=== PATIENT | male | born 1990 | race Caucasian/White ===

== ENCOUNTER 2017-12-29 08:39 | Emergency (ER) | payer MEDICAID ==
[~2017-12-29] VITALS: Ht 172.7 cm; Wt 59.0 kg
[2017-12-29] MEDS ORDERED: CLIN300C53 PO (09:11)
[2017-12-29 09:19] VITALS: BP 125/84
== END 2017-12-29 09:19 | disposition home or self-care (01) ==
LOC: ER 08:40
DX: K04.7 Periapical abscess without sinus (principal); F12.10 Cannabis abuse, uncomplicated; F17.200 Nicotine dependence, unspecified, uncomplicated; Z79.899 Other long term (current) drug therapy
CPT/HCPCS: 99283

== ENCOUNTER 2023-10-12 16:31 | Emergency (ER) | payer MEDICAID ==
[~2023-10-12] VITALS: Ht 170.2 cm; Wt 73.6 kg
[2023-10-12 17:00] VITALS: BP 154/84; PULSE 108; RESP 18; TEMP 97.8; O2SAT 99
[2023-10-12 17:25] LABS: BILIRUBIN,URINE NEGATIVE (Neg); CLARITY,URINE CLOUDY (Clear); COLOR,URINE YELLOW (Yellow); GLUCOSE, URINE NEGATIVE (Neg); KETONES,URINE NEGATIVE (Neg); LEUKOCYTE ESTERASE ,URINE SMALL (Neg); NITRITES, URINE POSITIVE (Neg); OCCULT BLOOD,URINE NEGATIVE (Neg); PH,URINE 7.5 (4.8-8.0); PROTEIN,URINE TRACE mg/dl (Neg); UROBILINOGEN,URINE 0.2 E.U/dL (0.2-1.0)
[2023-10-12 17:27] LABS: UA COLLECTION TYPE CLN CATCH MIDSTREAM
[2023-10-12 17:45] LABS: TRIPLE PHOSPHATE CRYST 3+ /HPF (NEGATIVE)
[2023-10-12 17:46] LABS: BACTERIA,URINE 4+ /HPF (Neg); RBC,URINE 0-2 /HPF (0-2); SQUAMOUS EPITHELIAL CELL,UR NONE SEEN /LPF (FEW); WBC,URINE 50-100 /HPF (0-4)
[2023-10-12 17:47] LABS: AMORPHOUS PHOSPHATES 2+
[2023-10-12 18:04] LABS: BASOPHILS # (AUTO) 0.1 X10'3 (0-0.2); BASOPHILS % (AUTO) 1.4 % (0-1); EOSINOPHILS # (AUTO) 0.6 X10'3 (0-0.9); EOSINOPHILS % (AUTO) 5.2 % (0-6); HEMATOCRIT 47.2 % (42.0-52.0); HEMOGLOBIN 16.4 g/dl (14.0-17.9); LYMPHOCYTES % (AUTO) 28.1 % (21-51); MEAN CORPUSCULAR HEMOGLOBIN 31.6 PG (27.0-31.0); MEAN CORPUSCULAR HGB CONC 34.7 g/dL (33.0-36.5); MEAN CORPUSCULAR VOLUME 91.1 FL (78-98); MEAN PLATELET VOLUME 8.9 FL (7.4-10.4); MONOCYTES # (AUTO) 0.7 X10'3 (0-0.9); MONOCYTES % (AUTO) 6.9 % (2-12); NEUTROPHILS # (AUTO) 6.3 X10'3 (1.8-7.7); NEUTROPHILS % (AUTO) 58.4 % (42-75); PLATELET COUNT 348 X10'3 (140-440); RED BLOOD COUNT 5.18 X10'6 (4.70-6.10); RED CELL DISTRIBUTION WIDTH 13.2 % (11.5-14.5); WHITE BLOOD COUNT 10.7 X10'3 (4.5-11.0)
[2023-10-12 18:13] LABS: ALANINE AMINOTRANSFERASE 34 U/L (12-78); ALBUMIN 4.1 G/DL (3.4-5.0); ALBUMIN/GLOBULIN RATIO 1.2 (1.1-1.5); ALKALINE PHOSPHATASE 95 IU/L (46-116); ANION GAP 9 (8-16); ASPARTATE AMINO TRANSFERASE 29 U/L (10-37); BILIRUBIN,TOTAL 0.4 MG/DL (0.1-1.0); BLOOD UREA NITROGEN 15 MG/DL (7-18); BUN/CREATININE RATIO 13.9 (10.0-20.0); CALCIUM 9.4 MG/DL (8.5-10.1); CHLORIDE 102 MMOL/L (99-107); CREATININE 1.08 MG/DL (0.60-1.10); GLUCOSE 96 MG/DL (70-104); LIPASE 27 U/L (16-77); POTASSIUM 4.1 MMOL/L (3.5-5.1); SODIUM 140 MMOL/L (135-145); TOTAL CARBON DIOXIDE 28.8 MMOL/L (24-32); TOTAL PROTEIN 7.5 G/DL (6.4-8.2); eCRCL 90 ML/MIN; eGFR 78 ML/MIN
[2023-10-12] MEDS ORDERED: DOXYCYCLINE 100MG CAPSULE PO STA (19:51)
[2023-10-12] MEDS ORDERED: CefTRIAXone 1000mg IM Kit (w/lidocaine diluent) IM ONE (19:55)
[2023-10-12] MEDS ORDERED: DOXY100C77 PO (20:01)
[2023-10-12] MEDS ORDERED: CEPH250T PO (20:01)
== END 2023-10-12 20:24 | disposition home or self-care (01) ==
LOC: ER 16:32
DX: N41.0 Acute prostatitis (principal); F12.10 Cannabis abuse, uncomplicated; Z79.899 Other long term (current) drug therapy
CPT/HCPCS: 36415; 80053; 81001; 83690; 85025; 87088; 87491; 99283

== ENCOUNTER 2023-11-06 16:24 | Emergency (ER) | payer MEDICAID | END 2023-11-06 18:41 | disposition left against medical advice (07) | LOC: ER 16:25 | DX: K04.7 Periapical abscess without sinus (principal); Z53.21 Procedure and treatment not carried out due to patient leaving prior to being seen by health care provider ==

== ENCOUNTER 2025-11-27 16:43 | Emergency (ER) | payer MEDICAID, OTHER ==
[~2025-11-27] VITALS: Ht 175.3 cm; Wt 67.9 kg
--- NOTE | 2025-11-27 17:05 | Physician Documentation ---
History of Present Illness ~ Chief Complaint: Urinary Symptoms Stated Complaint: BLADDER PAIN Time Seen by MD: 21:55 Primary Medical Doctor: NONE HPI Patient is a very pleasant 35-year-old male that presents to the emergency department for several days of what he describes is air or passing gas through his penis. Patient reports that he has a normal stream at the beginning of his urine stream but at the end of his urine stream he reports that he has air that escaped his penis sounding like flatulence. Patient denies any abdominal pain hematuria fevers chills nausea vomiting diarrhea CVA tenderness or any other symptoms at this time. Reports that he is sexually active and could have an STI. We will test the patient here in the emergency department. Patient is seen after medical screening exam on further questioning patient reports no symptoms tonight or in the past three weeks reporting that he came to the hospital to establish with emergency medical. Patient is unable to provide a timeline on symptoms or further elaborate on the symptoms he was experiencing. Patient became agitated when I attempted to have him further explain the symptoms he was experiencing. Medication Reconciliation Allergies: Coded Allergies: No Known Allergies (Unverified , 11/27/25) Past Medical History Past Medical History: Cellulitis Alcohol Use: Occasionally Drug Use: marijuana Lives with: Family Lives In: Home Occupation: employed Review of Systems ROS As stated above in the HPI, otherwise all systems are reviewed and negative. Physical Exam Vital Signs: Temperature: 98.2, Source: Oral, Heart Rate: 128, Respiratory Rate: 14, BP: 137/81, Pulse Oximetry: 98, Weight: 67.900 Oxygen Flow Rate: 0 Physical Exam VITALS: Reviewed and as above. GENERAL: Alert, no apparent distress. HEENT: Normocephalic, atraumatic, PERRL, EOMI, dry mucosa, no erythema RESPIRATORY: Lungs clear, normal breath sounds, no respiratory distress. CHEST: No accessory muscle use, no retractions CV: Regular rate, rhythm, no edema, no murmur, No: JVD GI: Soft, non-tender, bowels sounds present, no rebound, guarding, or rigidity BACK: No CVA tenderness, or swelling MUSCULOSKELETAL No deformities, no edema SKIN: Warm and dry, no rash NEURO: Oriented x4, No motor or sensory deficit PSYCH: Normal mood and affect, no agitation Progress Results/Orders Results/Orders Vital Signs 11/27/25 11/27/25 16:47 21:40 Temp 98.2 97.9 Pulse 128 87 Resp 14 16 B/P (MAP) 137/81 112/69 (83) Pulse Ox 98 98 O2 Flow Rate 0 0 Laboratory Tests Test 11/27/25 17:21 11/27/25 21:40 White Blood Count 8.8 Red Blood Count 4.89 Hemoglobin 14.4 Hematocrit 44.0 Mean Corpuscular Volume 90.1 Mean Corpuscular Hemoglobin 29.5 Mean Corpuscular Hemoglobin Concent 32.8 L Red Cell Distribution Width 12.8 Platelet Count 339 Mean Platelet Volume 8.1 Neutrophils (%) (Auto) 52.8 Lymphocytes (%) (Auto) 33.4 Monocytes (%) (Auto) 7.7 Eosinophils (%) (Auto) 5.2 Basophils (%) (Auto) 0.9 Neutrophils # (Auto) 4.6 Lymphocytes # (Auto) 2.9 Monocytes # (Auto) 0.7 Eosinophils # (Auto) 0.5 Basophils # (Auto) 0.1 CBC Comment Sodium Level 144 Potassium Level 4.0 Chloride Level 105 Carbon Dioxide Level 29.1 Anion Gap 10 Blood Urea Nitrogen 15 Creatinine 1.02 Estimated GFR/1.73 m2 83 BUN/Creatinine Ratio 14.7 Glucose Level 121 H Calcium Level 8.5 Total Bilirubin 0.3 Aspartate Amino Transf (AST/SGOT) 21 Alanine Aminotransferase (ALT/SGPT) 29 Alkaline Phosphatase 112 Total Protein 7.2 Albumin 3.5 Globulin 3.7 Albumin/Globulin Ratio 0.9 L Chemistry Comments Urine Specimen Description Cln catch midstream Urine Color Yellow Urine Clarity Cloudy Urine pH 7.0 Urine Specific [place] 1.020 Urine Protein Negative Urine Glucose (UA) Negative Urine Ketones Negative Urine Occult Blood Negative Urine Nitrite Negative Urine Bilirubin Negative Urine Urobilinogen 0.2 Urine Leukocyte Esterase Trace H Urine RBC 3-10 Urine WBC 30-50 H Urine Squamous Epithelial Cells Few Urine Bacteria 4+ Volume Urine Centrifuged 10 ml Urine Comment Medical Decision Making Additional information obtaine: N/A Findings As patient is reporting no symptoms now or for the past three weeks and was unable to elaborate on the symptoms he was experiencing three weeks ago in the fact that he reported his primary reason for coming to the emergency department was to establish with the emergency medical that has no evidence to make me suspect patient is having an acute medical emergency he is therefore appropriate for outpatient follow up. Patient has been advised he needs to follow up with the primary care provider and or [facility]. Patient became quite agitated at my attempt to elicit information and when I told him he would have to follow up with his primary care provider as he was having no acute symptoms. Urinary Diff Dx:Considerations: Include: Bowel obstruction, Pyelonephritis, Renal failure, Renal infarction, Strain, Urolithiasis, Urinary Obstruction, Urinary retention, UTI Genital Diff Dx:Considerations: Include: Foreign body, Priapism, Syphilis, Torsion-epididymis, Torsion-appendiceal, Urinary retention, Urethritis, Urethritis-chlamydial, Urethritis-gonococcal, UTI Departure Time of Disposition: 22:12 Disposition: 01 HOME / SELF CARE / HOMELESS Impression: Primary Impression: General medical exam Condition: Improved Additional Instructions: As you are experiencing no symptoms tonight and you were unable to explain the symptoms you were experiencing I recommend you follow up with your primary care provider for further evaluation. Please follow up with your primary care dior oakley or the [facility] in the next few days. Please return to the emergency department for any new or worsening concerning symptoms. Referrals: NO PRIMARY CARE PROVIDER (PCP) Education Educated: Patient Educated regarding: diagnosis, treatment, prognosis, need for follow up Signature Scribe Signature: No scribe Attestation: The note accurately reflects work and decisions made by me.DANG Sims 11/27/25 22:13 RAY SIEGEL [facility] Nov 27, 2025 17:05 LETY PEDRAZA [facility] Nov 27, 2025 22:13
[2025-11-27] MEDS ORDERED: iohexol 300mg/ml 100ml inj. ONE (17:30)
[2025-11-27 17:32] LABS: MEAN PLATELET VOLUME 8.1 FL (7.4-10.4); RED CELL DISTRIBUTION WIDTH 12.8 % (11.5-14.5)
[2025-11-27 17:47] LABS: CREATININE 1.02 MG/DL (0.60-1.10); TOTAL CARBON DIOXIDE 29.1 MMOL/L (24-32); eCRCL 96 ML/MIN; eGFR 83 ML/MIN
[2025-11-27 21:40] VITALS: BP 112/69; PULSE 87; RESP 16; TEMP 97.9; O2SAT 98
[2025-11-27 22:00] LABS: LEUKOCYTE ESTERASE ,URINE TRACE (Neg); NITRITES, URINE NEGATIVE (Neg); OCCULT BLOOD,URINE NEGATIVE (Neg)
[2025-11-27 22:15] LABS: UA COLLECTION TYPE CLN CATCH MIDSTREAM
[2025-11-27 22:16] LABS: SQUAMOUS EPITHELIAL CELL,UR FEW /LPF (FEW)
== END 2025-11-27 22:20 | disposition home or self-care (01) ==
LOC: ER 16:45
DX: Z00.00 Encounter for general adult medical examination without abnormal findings (principal); F12.90 Cannabis use, unspecified, uncomplicated; Z72.89 Other problems related to lifestyle
CPT/HCPCS: 36415; 80053; 81001; 85025; 99283; Q9967